=== PATIENT | female | born 1990 | race Caucasian/White ===

== ENCOUNTER → 2019-02-09 | Outpatient (CLI) | payer BC ==
[2019-02-09 16:11] LABS: HCT 34.5 % (34.0-46.0); HGB 11.6 gm/dL (11.4-16.0); MCH 30.5 pg (25.0-35.0); MCHC 33.6 g/dL (31.0-37.0); MCV 90.9 fL (80.0-100.0); Mean Platelet Volume 7.2; Platelet Count 273 k/uL (150-450); RDW 12.9 % (11.5-15.5); WBC 12.7 k/uL (3.8-10.6)
== END | disposition home or self-care (01) ==
LOC: LABWHC1 14:24
PROVIDERS: ATTEND Obstetrics & Gynecology
DX: Z34.82 Encounter for supervision of other normal pregnancy, second trimester (principal)
CPT/HCPCS: 36415; 82950; 85027

== ENCOUNTER 2019-05-25 05:44 | Inpatient (IN) | payer BC ==
[2019-05-23 15:13] VITALS: BMI 40.8
--- NOTE | 2019-05-24 08:19 | P.HPOB ---
History of Present Illness H&P Date: 05/24/19 Chief Complaint: Repeat cesearan section and tubal ligation. This patient is a pleasant 28 yr female estimated date of confinement 05/31/2019 estimated gestational age 39 and 1/7 weeks who presents for repeat section and tubal ligation. Previous delivery was due to cephlopelvic dystocia and she had decided to do a repeat c/s. She also requests permanent sterilization. has been uncomplicated. Review of Systems Genitourinary: Reports Menstruation: Reports amenorrhea Past Medical History Past Medical History: Asthma History of Any Multi-Drug Resistant Organisms: None Reported Past Surgical History: Section Additional Past Surgical History / Comment(s): Melvin tooth extraction Past Anesthesia/Blood Transfusion Reactions: Postoperative Nausea & Vomiting (PONV) Past Psychological History: No Psychological Hx Reported Smoking Status: Never smoker Past Alcohol Use History: None Reported Past Drug Use History: None Reported - Past Family History Father Family Medical History: No Reported History Medications and Allergies Home Medications Medication Instructions Recorded Confirmed Type Pnv,Calcium 72/Iron/Folic Acid 1 tab PO DAILY 04/14/16 05/23/19 History [Pnv Plus Multivit Tab] Allergies Allergy/AdvReac Type Severity Reaction Status Date / Time cefaclor [From [facility]] Allergy Rash/Hives Verified 05/23/19 15:09 ibuprofen Allergy Rash/Hives Verified 05/23/19 15:09 red dye Allergy Rash/Hives Verified 05/23/19 15:09 Cephalosporins AdvReac Rash/Hives Verified 05/23/19 15:09 Penicillins AdvReac Rash/Hives Verified 05/23/19 15:09 Sulfa (Sulfonamide AdvReac Rash/Hives Verified 05/23/19 15:09 Antibiotics) Exam Intake and Output 05/23/19 05/24/19 05/24/19 22:59 06:59 14:59 Other: Weight 107.955 kg - OBG Physical Exam Abdomen: bowel sounds normal, no diffuse tenderness, no bruit present, no guarding noted, no hepatomegaly, no splenomegaly, no mass Vagina: normal moisture, no discharge Cervix: no lesion, no discharge Uterus: enlarged (Fundal height is 40cm. ) Results Labs: A positive, Rubella Immune, RPR-HepB negative, Glucola was abnormal, but normal 3hr GTT. Ultrasound shows normal anatomy, LGA. GBS was negative. Assessment and Plan Assessment: This is a pleasant 28 yr female 39 and 1/7 weeks gestation who presents for repeat section and also requesting permanent sterilization by tubal ligation. Plan is repeat C/S and bilateral partial salpingectomy. Sofia understands that this surgery is considered permanent, however there is a failure rate of <11/999 procedures done. She also understands it is elective and other forms of control exist. She understands that surgery itself has risks: infection, bleeding, possible injury to bowel/bladder/vessels/ and/or other organs. All of the patients questions were answered and a written consent is obtained. (1) 39 weeks gestation of Status: Acute Code(s): Z3A.39 - 39 WEEKS GESTATION OF SNOMED Code(s): 72772858 (2) Previous delivery affecting Status: Acute Code(s): O34.219 - MATERNAL CARE FOR UNSP TYPE SCAR FROM PREVIOUS DEL SNOMED Code(s): 227970094 (3) Family planning Status: Acute Code(s): Z30.09 - ENCOUNTER FOR OTH GENERAL CNSL AND ADVICE ON CONTRACEPTION SNOMED Code(s): 825454984
[2019-05-25] MEDS ORDERED: LACTATED RINGERS 1,000 ML IV ONE (05:53)
[2019-05-25] MEDS ORDERED: CITRIC ACID-SODIUM CITRATE 15 ML CUP PO ONE (05:53)
[2019-05-25] MEDS: LACTATED RINGERS 1,000 ML IV SCH ×4 (06:24→21:14)
[2019-05-25 07:01] LABS: Basophils % (A) 0 %; Eosinophils # (A) 0.2 k/uL (0-0.7); Eosinophils % (A) 2 %; HCT 37.4 % (34.0-46.0); HGB 12.4 gm/dL (11.4-16.0); Lymphocytes # (A) 1.8 k/uL (1.0-4.8); Lymphocytes % (A) 17 %; MCH 31.3 pg (25.0-35.0); MCHC 33.3 g/dL (31.0-37.0); MCV 94.1 fL (80.0-100.0); Mean Platelet Volume 6.9; Monocytes # (A) 0.3 k/uL (0-1.0); Monocytes % (A) 3 %; Neutrophils # (A) 7.8 k/uL (1.3-7.7); Neutrophils % (A) 76 %; Platelet Count 257 k/uL (150-450); RBC 3.97 m/uL (3.80-5.40); RDW 12.6 % (11.5-15.5); WBC 10.2 k/uL (3.8-10.6)
[2019-05-25] MEDS ORDERED: CLINDAMYCIN 900 MG in DEXTROSE 5% IN WATER 50 ML IVPB ONE ×2 (07:15)
[2019-05-25] MEDS ORDERED: ONDANSETRON 4 MG/2 ML VIAL ONE (07:53)
[2019-05-25] MEDS ORDERED: OXYTOCIN 10 UNIT/ML 1 ML VIAL ONE (07:53)
[2019-05-25] MEDS ORDERED: ePHEDrine SULFATE/0.9% NACL/PF 50 MG/5 ML SYRINGE IV ONE (07:53)
[2019-05-25] MEDS ORDERED: DEXAMETHASONE SOD PHOS (MDV) 100 MG/10 ML VIAL ONE (07:53)
[2019-05-25] MEDS ORDERED: NALBUPHINE 10 MG/ML (1 ML AMP) ONE (07:53)
[2019-05-25] MEDS ORDERED: MORPHINE SULFATE (PF) 0.3 MG/0.3 ML SYR ONE (07:53)
[2019-05-25] MEDS ORDERED: KETOROLAC 30 MG/ML 1 ML VIAL ONE (07:53)
[2019-05-25] MEDS ORDERED: ONDANSETRON 4 MG/2 ML VIAL IVP PRN (08:40)
[2019-05-25] MEDS ORDERED: NALOXONE 0.4 MG/ML 1 ML VIAL IV PRN (08:40)
[2019-05-25] MEDS ORDERED: METOCLOPRAMIDE 5 MG/ML 2 ML VIAL IVP PRN (08:40)
[2019-05-25] MEDS ORDERED: KETOROLAC 30 MG/ML 1 ML VIAL IVP PRN (08:40)
[2019-05-25] MEDS ORDERED: ZOLPIDEM 5 MG TAB PO PRN (08:40)
[2019-05-25] MEDS ORDERED: OXYTOCIN 20 UNITS/1000 ML NS 1,000 ML IV SCH (08:40)
[2019-05-25] MEDS ORDERED: IBUPROFEN 600 MG TAB PO PRN (08:40)
[2019-05-25] MEDS ORDERED: diphenhydrAMINE ELIXIR 25 MG/10 ML CUP PO PRN (08:40)
[2019-05-25] MEDS ORDERED: SIMETHICONE 80 MG CHEWABLE PO PRN (08:40)
[2019-05-25] MEDS ORDERED: diphenhydrAMINE 50 MG/ML 1 ML VIAL IVP PRN (08:40)
[2019-05-25] MEDS ORDERED: LANOLIN CREAM 5 GM TUBE TOPICAL PRN (08:40)
--- NOTE | 2019-05-25 08:45 | P.OP ---
Date of Procedure: 05/25/19 Preoperative Diagnosis: #1: 39 and one sevenths week intrauterine . #2: Previous section desires repeat. #3: Multi parity desires permanent sterilization. Postoperative Diagnosis: Same Procedure(s) Performed: Repeat low transverse section and bilateral partial salpingectomy Anesthesia: spinal Surgeon: Sha Jose Technical Sales Support Specialist #1: Hilda Weiss Estimated Blood Loss (ml): 800 Pathology: other (Bilateral fallopian tube segments) Condition: stable Disposition: floor Indications for Procedure: Please see dictated H&P for intimate details of this patient's admission. Brief summary this is a pleasant 28-year-old 2 para 1 female estimated date of confinement 05/31/2019 estimated gestational age 39 and one sevenths weeks who presents to labor and delivery for requested repeat section and also requesting permanent sterilization. Patient I discussed the fact that a tubal ligation is considered permanent, however there is a failure rate of less than 5 per thousand procedures done. Patient also understands that there are alternatives to this type of control. Patient stands risks of surgery including risks of infection, bleeding, possible injury bowel, bladder, vessels, and/or other organs. All the patient's questions are answered written consent is obtained. Operative Findings: This was a vigorous viable male infant Apgars 8 and 9 delivery time was 0813 hours. Description of Procedure: This patient has a Patel catheter placed to straight drain. She subsequently taken to the operating room where she sat up and spinal anesthetic is adm inistered without incident. With an adequate level of anesthesia she has abdominal prep and drape. Scalpels then taken the previous Pfannenstiel incision is incised. A second scalpel is taken down the fascia the fascia scored with a knife. Fascial incision extended bilaterally using the Medina scissors. Fascia is then dissected off the rectus muscles sharply. Rectus muscles are the peritoneum identified and entered sharply. Peritoneum incision extended superior and inferior without difficulty. Bladder blade is then placed. Bladder peritoneum taken sharply off the lower uterine segment. Scalpels and taken low transverse uterine incision is made. Using a hemostat I into the uterine cavity. Of note the placenta is anterior. I do go through the placenta with a hemostat and there is loss of clear fluid. This incision is extended bluntly. Infant's head is then guided through the incision with fundal pressure. Mouth and nares are bulb suctioned. There is no evidence of a nuchal cord. We then with fundal pressure have deliver the rest this 's body. This is a vigorous viable male Apgars are 8 and 9 delivery time was 0813 hours. After delivery of the infant the umbilical cord is doubly clamped and cut appears to be trivascular. Placenta is manually extracted intact. Uterus is externalized uterine incision demarcated with Singh clamps. Uterine incision then closed using 0 Vicryl running locked fashion 2 layers. Excellent hemostasis is noted. I then turned my attention left fallopian tube approximately 4 cm from the cornual insertion a small window is made to the mesial salpinx with Bovie cautery. Using a 2-0 silk I doubly ligate a 1-2 cm segment of the tube. The segment is excised and handed off to pathology. Cauterization done of the tubal ends and good hemostasis is noted. Using a similar technique on the right side with similar results. Excess fluid is then removed from the abdomen and pelvis. Uterus is placed back into the abdomen. Parietal peritoneum was demarcated with hemostats. I do a final inspection of the fallopian tubes and uterine incision appears hemostatic. The parietal peritoneum was then closed using 0 Vicryl running fashion. Rectus muscle reapproximate 0 Vicryl interrupted fashion. Fascia is then closed using 0 PDS. Fascial incision is intact and hemostatic. Subcutaneous tissues and closed using a 3-0 Vicryl. Skin is and closed using eli. All counts are correct 3. There are no complications. Infant and mother in the birthing suite in satisfactory condition.
[2019-05-25] MEDS: SENNOSIDES-DOCUSATE SODIUM 1 EACH TAB PO SCH ×2 (09:42→21:14)
[2019-05-26] MEDS: LACTATED RINGERS 1,000 ML IV SCH (01:49)
--- NOTE | 2019-05-26 07:16 | P.PNOBGPC ---
Subjective - Subjective Patient reports: Reports appetite normal, Reports voiding normally, Reports pain well controlled, Reports ambulating normally : doing well Objective - Vital Signs Latest vital signs: Vital Signs Temp Pulse Resp BP Pulse Ox 05/26/19 04:00 98 F 85 15 112/70 05/26/19 00:00 98.1 F 94 15 129/75 100 05/25/19 20:00 98 F 95 15 107/67 05/25/19 15:14 97.5 F L 103 H 16 125/77 05/25/19 11:51 97.5 F L 90 18 123/77 05/25/19 10:41 96 18 137/71 05/25/19 10:11 97.6 F 96 16 134/74 05/25/19 09:40 97.6 F 82 16 127/61 96 05/25/19 09:24 76 16 125/64 05/25/19 09:11 81 18 136/60 05/25/19 08:56 78 18 133/69 05/25/19 08:41 91 18 114/57 Intake and Output 05/25/19 05/26/19 05/26/19 22:59 06:59 14:59 Intake Total 100 Output Total 600 700 Balance -500 -700 Intake: Oral 100 Output: Urine 600 700 Straight 700 Uretheral (Patel) 600 Other: # Voids 0 - Exam Lungs: bilateral: normal Chest: Normal S1, Normal S2 Extremities: Present: normal Abdomen: Present: normal appearance, soft. Absent: distention, tenderness Incision: Present: normal, dry, intact Uterus: Present: normal, firm Assessment and Plan Assessment: Postoperative day #2. Patient is resting without new complaints. Vital signs are stable she's afebrile. Uterus is firm nontender her incision is intact and dry. Plan today is to check a CBC, encourage ambulation care, allow patient to shower, advance diet. (1) 39 weeks gestation of Current Visit: No Status: Acute Code(s): Z3A.39 - 39 WEEKS GESTATION OF SNOMED Code(s): 22182791 (2) Previous delivery affecting Current Visit: No Status: Acute Code(s): O34.219 - MATERNAL CARE FOR UNSP TYPE SCAR FROM PREVIOUS DEL SNOMED Code(s): 172341421 (3) Family planning Current Visit: No Status: Acute Code(s): Z30.09 - ENCOUNTER FOR OTH GENERAL CNSL AND ADVICE ON CONTRACEPTION SNOMED Code(s): 840698781
[2019-05-26 07:56] LABS: Basophils % (A) 0 %; Eosinophils # (A) 0.1 k/uL (0-0.7); Eosinophils % (A) 1 %; HCT 33.5 % (34.0-46.0); HGB 11.2 gm/dL (11.4-16.0); Lymphocytes # (A) 2.2 k/uL (1.0-4.8); Lymphocytes % (A) 13 %; MCHC 33.3 g/dL (31.0-37.0); MCV 95.8 fL (80.0-100.0); Mean Platelet Volume 6.9; Monocytes # (A) 0.5 k/uL (0-1.0); Monocytes % (A) 3 %; Neutrophils # (A) 13.6 k/uL (1.3-7.7); Neutrophils % (A) 81 %; Platelet Count 288 k/uL (150-450); RBC 3.49 m/uL (3.80-5.40); RDW 12.6 % (11.5-15.5); WBC 16.8 k/uL (3.8-10.6)
[2019-05-26] MEDS: SENNOSIDES-DOCUSATE SODIUM 1 EACH TAB PO SCH ×3 (08:32→19:39)
[2019-05-26] MEDS: ACETAMINOPHEN TAB 325 MG TAB PO PRN ×3 (08:36→23:28)
[2019-05-26] MEDS: HYDROcodone/APAP 5-325MG 1 EACH TAB PO PRN ×2 (13:21→19:39)
--- NOTE | 2019-05-26 20:19 | P.PN ---
Progress Note - Text 05/26 [id number] 28-year-old female status post with spinal anesthetic and Duramorph for postop pain control. Patient seen this morning and evaluated for pain control, doing well with a VAS of 1 complains of nausea vomiting and pruritus. Although symptoms have subsided doing better today. Plan is patient to follow up with the OB doctor for pain control
[2019-05-27] MEDS: ACETAMINOPHEN TAB 325 MG TAB PO PRN ×2 (04:42→09:08)
--- NOTE | 2019-05-27 07:10 | P.PNOBGPC ---
Subjective - Subjective Patient reports: Reports appetite normal, Reports voiding normally, Reports pain well controlled, Reports ambulating normally : doing well Objective - Vital Signs Latest vital signs: Vital Signs Temp Pulse Resp BP Pulse Ox 05/26/19 23:34 98.2 F 90 18 106/56 99 05/26/19 16:00 97.9 F 86 16 107/63 05/26/19 08:00 98.3 F 93 16 116/68 - Exam Lungs: bilateral: normal Chest: Normal S1, Normal S2 Extremities: Present: normal Abdomen: Present: normal appearance, soft. Absent: distention, tenderness Incision: Present: normal, dry, intact Uterus: Present: normal, firm - Labs Labs: Abnormal Lab Results - Last 24 Hours (Table) 05/26/19 Range/Units 07:45 WBC 16.8 H (3.8-10.6) k/uL RBC 3.49 L (3.80-5.40) m/uL Hgb 11.2 L (11.4-16.0) gm/dL Hct 33.5 L (34.0-46.0) % Neutrophils # 13.6 H (1.3-7.7) k/uL Assessment and Plan Assessment: Postoperative day #2. Patient is resting without complaints and wishes to go home. Vital signs are stable she is afebrile. Uterus is firm nontender and her incision is intact and dry. Hemoglobin yesterday was 11.2. My impression this is a normal postoperative course. Plan is to continue routine postoperative care discharge home today. (1) 39 weeks gestation of Current Visit: No Status: Acute Code(s): Z3A.39 - 39 WEEKS GESTATION OF SNOMED Code(s): 59998391 (2) Previous delivery affecting Current Visit: No Status: Acute Code(s): O34.219 - MATERNAL CARE FOR UNSP TYPE SCAR FROM PREVIOUS DEL SNOMED Code(s): 190988875 (3) Family planning Current Visit: No Status: Acute Code(s): Z30.09 - ENCOUNTER FOR OTH GENERAL CNSL AND ADVICE ON CONTRACEPTION SNOMED Code(s): 107522224
--- NOTE | 2019-05-27 07:18 | P.DS ---
Providers Date of admission: 05/25/19 05:44 Expected date of discharge: 05/27/19 Attending physician: Sha Jose Primary care physician: Stated None - Discharge Diagnosis(es) (1) 39 weeks gestation of Current Visit: No Status: Acute (2) Previous delivery affecting Current Visit: No Status: Acute (3) Family planning Current Visit: No Status: Acute Hospital Course: Please see dictated H&P for intimate details of this patient's admission. Brief summary this is a pleasant 28-year-old 2 para 1 female 39 and one sevenths weeks gestation admitted to labor and delivery for elective repeat section and also requesting permanent sterilization. Patient undergoes above-named surgery for viable male . The see dictated delivery note. On postoperative #2 patient's felt be stable for discharge home follow up with me in 1 week. Procedures: Repeat low transverse section and bilateral partial salpingectomy Patient Condition at Discharge: Good Plan - Discharge Summary Discharge Rx Participant: Yes New Discharge Prescriptions: New HYDROcodone/APAP 5-325MG [[place] 5-325] 1 each PO Q4HR PRN #18 tab PRN Reason: Moderate Pain No Action Pnv,Calcium 72/Iron/Folic Acid [Pnv Plus Multivit Tab] 1 tab PO DAILY Discharge Medication List Pnv,Calcium 72/Iron/Folic Acid [Pnv Plus Multivit Tab] 1 tab PO DAILY 04/14/16 [History] HYDROcodone/APAP 5-325MG [[place] 5-325] 1 each PO Q4HR PRN #18 tab 05/27/19 [Rx] Follow up Appointment(s)/Referral(s): Sha Jose MD [STAFF PHYSICIAN] - 06/04/19 1:30 pm (Patient also has a six- week appointment for visit on July 06 at 10:30 AM.) Patient Instructions/Handouts: (DC) Activity/Diet/Wound Care/Special Instructions: No strenuous activity or heavy lifting for 6 weeks. No intercourse or anything per vagina for 6 weeks. Please call if any fever, chills, excessive vaginal bleeding, and/or abdominal pain. Discharge Disposition: HOME SELF-CARE
[2019-05-27] MEDS: SENNOSIDES-DOCUSATE SODIUM 1 EACH TAB PO SCH (07:46)
[2019-05-27 07:50] VITALS: BP 128/68; PULSE 95; RESP 16; TEMP 98.1
== END 2019-05-27 10:11 | disposition home or self-care (01) | DRG 785 ==
LOC: 4FBP 05:44
PROVIDERS: ADMIT Obstetrics & Gynecology; ATTEND Obstetrics & Gynecology
PROC: 0UB70ZZ Excision of Bilateral Fallopian Tubes, Open Approach (ICD-10-PCS; 2019-05-25)
PROC: 10D00Z1 Extraction of Products of Conception, Low, Open Approach (ICD-10-PCS; principal; 2019-05-25 07:58)
DX: O34.211 Maternal care for low transverse scar from previous cesarean delivery (principal); J45.909 Unspecified asthma, uncomplicated; O99.52 Diseases of the respiratory system complicating childbirth; Z30.2 Encounter for sterilization; Z37.0 Single live birth; Z3A.39 39 weeks gestation of pregnancy; Z88.6 Allergy status to analgesic agent; Z88.1 Allergy status to other antibiotic agents; Z88.0 Allergy status to penicillin; Z88.2 Allergy status to sulfonamides
CPT/HCPCS: 85025; 86850; 86900; 86901; 88302